=== PATIENT | female | born 1990 | race African-American/Black ===

== ENCOUNTER 2019-01-10 08:32 | Emergency (ER) | payer SELFPAY ==
[~2019-01-10] VITALS: Ht 157.5 cm; Wt 90.7 kg
[2019-01-10 08:35] VITALS: BP 138/78
[2019-01-10 09:06] LABS: BILIRUBIN,URINE NEGATIVE (NEG); CLARITY,URINE CLEAR; COLOR,URINE AMBER; NITRITE,URINE NEGATIVE (NEG); PROTEIN,URINE NEGATIVE (NEG-TRACE)
[2019-01-10 09:16] LABS: BACTERIA,URINE 0 /HPF (0-FEW); RBC,URINE 0 /HPF (0-2); SQUAMOUS EPITHELIAL CELL,UR OCC /LPF; WBC,URINE OCC /HPF (0-4)
--- NOTE | 2019-01-10 09:16 | PHYS DOC ---
Past Medical History Additional Past Medical Histor: EPILEPSY Past Surgical History: Cholecystectomy, Tonsillectomy Alcohol Use: Occasionally Drug Use: None Adult General Chief Complaint Chief Complaint: VAGINAL BLEEDING [facility] HPI Patient is a 28 year old AA female who presents to the emergency department with complaints of vaginal bleeding during . Patient states she is 2, para 1, with her last menstrual period being on November 272018. She states she went to a clinic of [facility] a week ago and had a positive test. She was told that her due date is September 03, 2019. Patient states she had ultrasound at that time but they were unable to visualize the fetus. She reports lower abdominal cramping currently she rates the pain a 5 out of 10 on the pain scale, there are no alleviating or exacerbating factors. She reports that on January 052019 she had a bright vaginal bleeding, the bleeding she experienced yesterday was dark red and small clots. She currently denies any vaginal bleeding. She reports a PMH of epilepsy that she currently takes Keppra for. She denies any irregular vaginal discharge or odor prior to onset of bleeding. She currently denies any vaginal bleedings, her only complaint at this time is lower abdominal cramping. Patient denies any fever, cough, shortness of breath, low back pain, dysuria, hematuria, nausea, or vomiting. All other ROS is neg unless otherwise noted in HPI. Review of Systems Review of Systems See Above Allergies Allergies Allergies Coded Allergies Type Severity Reaction Last Updated Verified divalproex sodium Allergy Severe RASH, CHEST TIGHTNESS, ANGIOEDEMA 01/10/19 Yes Physical Exam Physical Exam See Above Constitutional: Well developed, well nourished, no acute distress, non-toxic appearance. [] HENT: Normocephalic, atraumatic, bilateral external ears normal, nose normal. [] Eyes: PERRLA, conjunctiva normal, no discharge. [] Neck: Normal range of motion, no stridor. [] Cardiovascular:Heart rate regular rhythm, no murmur [] Lungs & Thorax: Bilateral breath sounds clear to auscultation [] Abdomen: Bowel sounds normal, soft, no tenderness, no masses, no pulsatile masses. [] Skin: Warm, dry, no erythema, no rash. [] Extremities: No cyanosis, ROM intact Neurologic: Alert and oriented X 3, no focal deficits noted. [] Psychologic: Affect normal, judgement normal, mood normal. [] Current Patient Data Vital Signs Vital Signs Date Time Temp Pulse Resp B/P (MAP) Pulse Ox O2 Delivery O2 Flow Rate FiO2 01/10/19 08:35 97.9 78 18 138/78 (98) 100 97.9 Lab Values Laboratory Tests Test 01/10/19 08:50 01/10/19 08:52 01/10/19 09:25 Urine Collection Type Unknown Urine Color Swathi Urine Clarity Clear Urine pH 6.0 Urine Specific Morley >=1.030 Urine Protein Negative mg/dL (NEG-TRACE) Urine Glucose (UA) Negative mg/dL (NEG) Urine Ketones (Stick) Negative mg/dL (NEG) Urine Blood Negative (NEG) Urine Nitrite Negative (NEG) Urine Bilirubin Negative (NEG) Urine Urobilinogen Dipstick 1.0 mg/dL (0.2 mg/dL) Urine Leukocyte Esterase Negative (NEG) Urine RBC 0 /HPF (0-2) Urine WBC Occ /HPF (0-4) Urine Squamous Epithelial Cells Occ /LPF Urine Bacteria 0 /HPF (0-FEW) Urine Mucus Slight /LPF POC Urine HCG, Qualitative Hcg positive (Negative) Maternal Serum HCG Beta Subunit 91130 mIU/mL (0-5) H EKG EKG [] Radiology/Procedures Radiology/Procedures PROCEDURE: OB <14 WKS W/TV CLINICAL HISTORY: First trimester , vaginal bleeding COMPARISON: None available. TECHNIQUE: transabdominal and endovaginal sonography was performed FINDINGS: An intrauterine gestational sac is present. An embryo is identified .Cardiac activity is visualized and documented at a rate of 124 beats per minute. There is no subchorionic fluid collection. Based on a crown rump length averaging 0.64 cm, the estimated gestational age is 6 weeks, 3 days. Estimated date of delivery is 09/02/2019. The right ovary measures 3.4 x 1 x 1.2 cm. The left ovary measures 4.6 x 2.1 x 3 cm. A 2.7 cm left ovarian cystic structure, possibly corpus luteum cyst. Flow seen to both ovaries. No evidence for ovarian torsion. There is no pelvic free fluid. IMPRESSION: 1. Single live intrauterine gestation with mean sonographic age of 6 weeks, 3 days. The estimated date of delivery is 09/02/2019. 2. No abnormal adnexal masses [] Course & Med Decision Making Course & Med Decision Making Pertinent Labs and Imaging studies reviewed. (See chart for details) dx: vaginal bleeding in first trimester, threatened HCG level was 25.998 today. Pt's blood type is O positive. U/S revealed: Single live intrauterine gestation with mean sonographic age of 6 weeks, 3 days. The estimated date of delivery is 09/02/2019. Pt instructed to follow up with Dr. Ruiz in 2 days, pelvic rest until follow- up. Patient verbalized an understanding of home care, medications, follow-up, and return to ED instructions and was in agreement with the plan of care. [] Dragon Disclaimer Dragon Disclaimer This electronic medical record was generated, in whole or in part, using a voice recognition dictation system. Departure Departure Impression: Primary Impression: Vaginal bleeding before 22 weeks gestation Additional Impression: Threatened in first trimester Disposition: 01 HOME, SELF-CARE Condition: STABLE Referrals: SHARIF RUIZ Jr, MD Patient Instructions: Threatened Miscarriage, [id number], Vaginal Bleeding During , First Trimester Additional Instructions: Your HCG level was 25.998 today in the ER. Pelvic rest until follow up, call Dr. Ruiz's office today to schedule a follow-up appointment in 2 days. Return to the ER if your symptoms worsen. Problem Qualifiers MARYAM GUERRA APRN Jan 10, 2019 09:16
--- NOTE | 2019-01-10 10:11 | RAD ---
CLINICAL HISTORY: First trimester , vaginal bleeding COMPARISON: None available. TECHNIQUE: transabdominal and endovaginal sonography was performed FINDINGS: An intrauterine gestational sac is present. An embryo is identified .Cardiac activity is visualized and documented at a rate of 124 beats per minute. There is no subchorionic fluid collection. Based on a crown rump length averaging 0.64 cm, the estimated gestational age is 6 weeks, 3 days. Estimated date of delivery is 09/02/2019. The right ovary measures 3.4 x 1 x 1.2 cm. The left ovary measures 4.6 x 2.1 x 3 cm. A 2.7 cm left ovarian cystic structure, possibly corpus luteum cyst. Flow seen to both ovaries. No evidence for ovarian torsion. There is no pelvic free fluid. IMPRESSION: 1. Single live intrauterine gestation with mean sonographic age of 6 weeks, 3 days. The estimated date of delivery is 09/02/2019. 2. No abnormal adnexal masses Electronically signed by: Derik Noland MD (01/10/2019 10:09 AM) [facility]
== END 2019-01-10 10:50 | disposition home or self-care (01) ==
LOC: ER 08:32
DX: O20.0 Threatened abortion (principal); O99.351 Diseases of the nervous system complicating pregnancy, first trimester; G40.909 Epilepsy, unspecified, not intractable, without status epilepticus; Z3A.01 Less than 8 weeks gestation of pregnancy; Z90.49 Acquired absence of other specified parts of digestive tract; Z88.8 Allergy status to other drugs, medicaments and biological substances
CPT/HCPCS: 36415; 76801; 76817; 81001; 81025; 84702; 86900; 86901; 99285-25